=== PATIENT | female | born 1970 | race Caucasian/White ===

== ENCOUNTER → 2023-10-10 10:52 | Outpatient (REF) | payer OTHER, SELFPAY | LOC: DHSLP 10:52 | PROVIDERS: ATTENDING PHYSICIAN Otolaryngology; FAMILY PHYSICIAN Nurse Practitioner Adult Health | DX: G47.33 Obstructive sleep apnea (adult) (pediatric) (principal) | CPT/HCPCS: 95800 ==

== ENCOUNTER → 2024-04-09 12:05 | Outpatient (REF) | payer OTHER, SELFPAY ==
[2024-04-09 13:45] LABS: % Basophils 0.4 % (0-2); % Eosinophils 3.7 % (0-6); % Immature Granulocytes 0.2 % (0-0.5); % Lymphocytes 36.5 % (20.5-51.1); % Neutrophils 47.2 % (42.2-75.2); Absolute Eosinophils 0.2 10^3/uL (0-0.7); Absolute Lymphocytes 1.7 10^3/uL (1.2-3.4); Absolute Monocytes 0.6 10^3/uL (0.1-0.6); Absolute Neutrophils 2.2 10^3/uL (1.4-6.5); Hematocrit 46.1 % (37.0-47.0); Hemoglobin 15.7 g/dL (12.0-16.0); Mean Corp Hgb Conc. 34.1 g/dL (33.0-37.0); Mean Corpuscular Hgb 29.1 pg (27.0-31.0); Mean Corpuscular Volume 85.4 fL (81.0-99.0); Mean Platelet Volume 10.5 fL (7.4-10.4); Nucleated Red Blood Cells % 0 %; Platelet Count 176 10^3/uL (130-400); Red Cell Dist. Width 13.2 % (11.5-14.5); White Blood Cell Count 4.6 10^3/uL (4.8-10.8)
[2024-04-09 14:03] LABS: D-Dimer 0.39 ug/mlFEU (0.00-0.50)
[2024-04-09 14:04] LABS: ALT (SGPT) 26 U/L (0-35); AST (SGOT) 31 U/L (14-36); Albumin 4.8 g/dl (3.5-5.0); Alkaline Phosphatase 71 U/L (38-126); Blood Urea Nitrogen 18 mg/dl (7-17); Calcium 9.8 mg/dl (8.4-10.2); Carbon Dioxide 29 mmol/L (22-30); Chloride 95 mmol/L (98-107); Glucose 89 mg/dl (70-99); Potassium 3.9 mmol/L (3.5-5.1); Sodium 136 mmol/L (135-145); Total Bilirubin 0.8 mg/dl (0.2-1.3); Total Protein 7.7 g/dl (6.3-8.2); eGFR > 60.00
== END ==
LOC: HWLAB 12:05
PROVIDERS: ATTENDING PHYSICIAN Nurse Practitioner Adult Health
DX: R06.02 Shortness of breath (principal); Z82.49 Family history of ischemic heart disease and other diseases of the circulatory system
CPT/HCPCS: 36415; 71046; 80053; 85025; 85379

== ENCOUNTER → 2024-09-05 10:28 | Outpatient (REF) | payer OTHER, SELFPAY | LOC: RAD 10:28 | PROVIDERS: ATTENDING PHYSICIAN Internal Medicine Gastroenterology; FAMILY PHYSICIAN Nurse Practitioner Adult Health | DX: R13.19 Other dysphagia (principal) | CPT/HCPCS: 74221 ==

== ENCOUNTER → 2024-09-09 12:05 | Outpatient (REF) | payer OTHER, SELFPAY | LOC: WDC 12:05 | PROVIDERS: ATTENDING PHYSICIAN Nurse Practitioner Adult Health | DX: Z12.31 Encounter for screening mammogram for malignant neoplasm of breast (principal) | CPT/HCPCS: 77063; 77067 ==